=== PATIENT | female | born 1940 | race Caucasian/White ===

== ENCOUNTER 2019-03-07 00:09 | Emergency (ER) | payer SELFPAY ==
[~2019-03-07] VITALS: Ht 160 cm; Wt 58.0 kg
[2019-03-07 04:00] VITALS: BP 153/83
== END 2019-03-07 05:43 | disposition home or self-care (01) ==
LOC: ER 00:09
DX: E11.649 Type 2 diabetes mellitus with hypoglycemia without coma (principal); I10 Essential (primary) hypertension
CPT/HCPCS: 82962; 93005; 99283